=== PATIENT | male | born 1975 | race African-American/Black ===

== ENCOUNTER 2020-06-09 08:29 | Inpatient (IN) | payer OTHER ==
--- NOTE | 2020-06-09 09:21 | BHS.RME ---
Substance Use & Tx History - Substance Use History Heroin Substance amount: 5-6 bags Frequency of use: Daily Substance route: Inhalation (ex: sniffing or snorting) Date of Last Use: 06/08/20 Cocaine- Powder Substance amount: $20-30 Frequency of use: Once a month Substance route: Inhalation (ex: sniffing or snorting) Date of Last Use: 06/02/20 - Last Treatment Date of last treatment: none Physical/Psych/Mental Status - Behavior General Behavior: Increased activity (restlessness, agitation) Eye Contact: Normal - Cooperativeness Cooperativeness: Cooperative - Thinking Thought Processes: Tight, Logical, Goal Directed Thought content: Future oriented - Physical Health Problems Is patient presently having any pain?: No Does patient presently have any injuries (include location): No Does patient currently have a fever: No Is patient : No COWS - Scale Resting Pulse: 0= [place] 80 or Below Sweatin= Chills/Flushing Restless Observation: 1= Difficult to Sit Still Pupil Size: 1= Pupils >than Normal Bone or Joint Aches: 2= Severe Diffuse Aches Runny Nose/ Eye Tearin= Runny Nose/Eyes GI Upset > 30mins: 1= Stomach Cramp Tremor Observation: 2= Slight Tremor Visible Yawning Observation: 2= >3x During Session Anxiety or Irritability: 2=Irritable/Anxious Goose Flesh Skin: 3=Piloerection COWS Score: 17
[2020-06-09 09:46] VITALS: BMI 21.1
--- NOTE | 2020-06-09 10:13 | HP ---
COWS - Scale Resting Pulse: 0= [place] 80 or Below Sweatin= Chills/Flushing Restless Observation: 1= Difficult to Sit Still Pupil Size: 1= Pupils >than Normal Bone or Joint Aches: 2= Severe Diffuse Aches Runny Nose/ Eye Tearin= Runny Nose/Eyes GI Upset > 30mins: 1= Stomach Cramp Tremor Observation: 2= Slight Tremor Visible Yawning Observation: 2= >3x During Session Anxiety or Irritability: 2=Irritable/Anxious Goose Flesh Skin: 3=Piloerection COWS Score: 17 CIWA Score - Admission Criteria OASAS Guidelines: Admission for Medically Managed Detox: Requires at least one of the followin. CIWA greater than 12 2. Seizures within the past 24 hours 3. Delirium tremens within the past 24 hours 4. Hallucinations within the past 24 hours 5. Acute intervention needed for co occurring medical disorder 6. Acute intervention needed for co occurring psychiatric disorder 7. Severe withdrawal that cannot be handled at a lower level of care (continued vomiting, continued diarrhea, abnormal vital signs) requiring intravenous medication and/or fluids 8. Admitting History and Physical - Admission Chief Complaint: Mr. Medina is a 45 yo man who presents to [facility] stating "I need to get clean. Everything is going down hill". History of Present Illness: Mr. Medina is a 45 yo man who presents to [facility] stating "I need to get clean. Everything is going down hill". This is his first detox admission and first [facility] visit. PMH: HIV (Biktarvy and Prescovix), HTN PSH; none Psych: none SOC: livws in an [facility] in [place] Legal: none Substance Use History Heroin Substance amount: 5-6 bags Frequency of use: Daily Substance route: Inhalation (ex: sniffing or snorting) Date of Last Use: 06/08/20 Began at the age of 44 y No OD. No Narcan at home Cocaine- Powder Substance amount: $20-30 Frequency of use: Once a month Substance route: Inhalation (ex: sniffing or snorting) Date of Last Use: 06/02/20 Began at the age of 44 y Nicotine: 3 cigs/day, began age 20 y - Last Treatment Date of last treatment: none History Source: Patient Limitations to Obtaining History: No Limitations - Smoking History Smoking history: Current every day smoker Have you smoked in the past 12 months: Yes Aproximately how many cigarettes per day: 2 Admission ROS BHS - HPI Allergies/Adverse Reactions: Allergies Allergy/AdvReac Type Severity Reaction Status Date / Time No Known Allergies Allergy Verified 06/09/20 09:40 Exam Limitations: No Limitations - Ebola screening Have you traveled outside of the country in the last 21 days: No Have you been sick,other than usual withdrawal symptoms: No Do you have a fever: No - Review of Systems Constitutional: Unintentional Wgt. Loss (20 lb loss in 2 mos) EENT: reports: No Symptoms Reported Respiratory: reports: No Symptoms reported Cardiac: reports: No Symptoms Reported GI: reports: Nausea : reports: No Symptoms Reported Musculoskeletal: reports: Back Pain Integumentary: reports: Dryness Neuro: reports: No Symptoms reported Endocrine: reports: No Symptoms Reported Hematology: reports: No Symptoms Reported Psychiatric: reports: Anxious Patient History - Patient Medical History Hx Asthma: No Hx Chronic Obstructive Pulmonary Disease (COPD): No Hx Cardiac Disorders: No Hx Hypertension: Yes Hx Seizures: No Hx Diabetes: No Hx Gastrointestinal Disorders: No Hx Genitourinary Disorders: No Hx Sexually Transmitted Disorders: Yes Hx Renal Disease (ESRD): No Hx Depression: No Hx Suicide Attempt: No Hx Schizophrenia: No - Patient Surgical History Past Surgical History: No Hx Neurologic Surgery: No Hx Cataract Extraction: No Hx Cardiac Surgery: No Hx Lung Surgery: No Hx Breast Surgery: No Hx Breast Biopsy: No Hx Abdominal Surgery: No Hx Appendectomy: No Hx Cholecystectomy: No Hx Genitourinary Surgery: No Hx Section: No Hx Orthopedic Surgery: No Anesthesia Reaction: No - PPD History Previous Implant?: Yes Documented Results: Negative w/o proof - Smoking Cessation Smoking history: Current every day smoker Have you smoked in the past 12 months: Yes Aproximately how many cigarettes per day: 2 Hx Chewing Tobacco Use: No Initiated information on smoking cessation: No - Substances abused Heroin Substance route: Inhalation Frequency: Daily Amount used: 5-6 BAGS Age of first use: 44 Date of last use: 06/08/20 Cocaine Substance route: Inhalation Frequency: 1-3 times last 30 days Amount used: $20-$30 Age of first use: 44 Date of last use: 06/02/20 Admission Physical Exam BHS - Vital Signs Vital Signs: Vital Signs - 24 hr 06/09/20 09:41 Temperature 97.9 F Pulse Rate 71 Respiratory 18 Rate Blood Pressure 165/108 H - Physical General Appearance: Yes: No Apparent Distress, Nourished, Appropriately Dressed HEENTM: Yes: EOMI, Hearing grossly Normal, Normocephalic, Other (left ptosis, life long) Respiratory: Yes: Lungs Clear, Normal Breath Sounds, No Accessory Muscle Use Neck: Yes: Within Normal Limits, Supple Breast: Yes: Breast Exam Deferred Cardiology: Yes: Regular Rhythm, Regular Rate, S1, S2 Abdominal: Yes: Non Tender, Flat, Soft, Increased Bowel Sounds Genitourinary: Yes: Other (deferred) Back: Yes: Normal Inspection Musculoskeletal: Yes: Gait Steady Extremities: Yes: Normal Inspection, Non-Tender, Other (dry skin bilateral ankles with 5mm elevated area centrally on the right) Neurological: Yes: Alert, Normal Response Integumentary: Yes: Other (above) - Diagnostic (1) Opioid dependence with withdrawal Current Visit: Yes Status: Acute (2) Cocaine dependence Current Visit: Yes Status: Acute (3) Nicotine dependence Current Visit: Yes Status: Acute (4) HTN (hypertension) Current Visit: Yes Status: Chronic (5) HIV (human immunodeficiency virus infection) Current Visit: Yes Status: Chronic Cleared for Admission [facility] - Detox or Rehab [facility] Level of Care: Medically Managed Detox Regimen/Protocol: Methadone Breathalyzer - Breathalyzer Breathalyzer: 0 Urine Drug Screen - Test Device Lot number: [id number] Expiration date: 07/26/21 - Control Is test valid?: Yes - Results Drug screen NEGATIVE: No Urine drug screen results: FEN-Fentanyl, MOP-Opiates Inpatient Rehab Admission - Rehab Decision to Admit Inpatient rehab admission?: No
[2020-06-09] MEDS ORDERED: MAGNESIUM HYDROX 2400MG/30ML ORAL SUSPENSION 30 ML CUP PO PRN (10:18)
[2020-06-09] MEDS ORDERED: METHOCARBAMOL 500 MG TABLET PO PRN (10:18)
[2020-06-09] MEDS ORDERED: ACETAMINOPHEN 325 MG TABLET (FP) PO PRN ×2 (10:18)
[2020-06-09] MEDS ORDERED: METHADONE HCL 10 MG TABLET (FOR DETOX USE ONLY) PO ONE (10:18)
[2020-06-09] MEDS ORDERED: MAG HYDROX/AL HYDROX/SIMETH 30 ML UNIT-DOSE CUP PO PRN (10:18)
[2020-06-09] MEDS ORDERED: MAGNESIUM CITRATE 300 ML BOTTLE PO PRN (10:18)
[2020-06-09] MEDS ORDERED: NICOTINE POLACRILEX 2 MG GUM BUC PRN (10:18)
[2020-06-09] MEDS ORDERED: MENTHOL/PHENOL 1 EACH UD MM PRN (10:18)
[2020-06-09] MEDS ORDERED: ONDANSETRON *ODT* 4 MG TABLET SL PRN (10:18)
[2020-06-09] MEDS ORDERED: BISMUTH SUBSALICYLATE 262 MG/15 ML BTL PO PRN (10:18)
[2020-06-09] MEDS ORDERED: IBUPROFEN 400 MG TABLET (FP) PO PRN (10:18)
[2020-06-09] MEDS ORDERED: PATIENT'S OWN MEDICATION (NON-FORMULARY) (Bictegrav/Emtricit/Tenofov Ala 1 EACH) PO SCH (10:30)
[2020-06-09] MEDS ORDERED: DARUNAVIR 800 MG/COBICISTAT 150MG TABLET PO SCH (10:30)
--- NOTE | 2020-06-09 10:49 | EKG ---
Test Reason : Blood Pressure : / mmHG Vent. Rate : 059 BPM Atrial Rate : 059 BPM P-R Int : 146 ms QRS Dur : 098 ms QT Int : 434 ms P-R-T Axes : 019 043 -03 degrees QTc Int : 429 ms SINUS BRADYCARDIA LEFT ATRIAL ENLARGEMENT VOLTAGE CRITERIA FOR LEFT VENTRICULAR HYPERTROPHY ABNORMAL ECG NO PREVIOUS ECGS AVAILABLE Confirmed by MD TANIA, YAMILA ([id number]) on 06/09/2020 10:48:32 AM Referred By: Confirmed By:YAMILA HER MD
[2020-06-09] MEDS: BICTEGRAV/EMTRICIT/TENOFOV (BIKTARVY) 50-200-25 MG TABLET PO SCH (11:25)
[2020-06-09] MEDS: ASPIRIN 81 MG CHEWABLE TABLETS PO SCH (11:25)
[2020-06-09] MEDS: HYDROCHLOROTHIAZIDE 12.5 MG CAPSULE (FP) PO SCH (11:25)
[2020-06-09] MEDS: DARUNAVIR 800 MG/COBICISTAT 150MG TABLET PO SCH (11:31)
[2020-06-09] MEDS: cloNIDine HCL 0.1 MG TABLET PO PRN ×2 (13:26→22:15)
[2020-06-09] MEDS: hydrOXYzine PAMOATE 25 MG CAPSULE (FP) PO SCH ×3 (13:27→22:15)
[2020-06-09 16:33] LABS: HEMATOCRIT 39.9 % (35.4-49); MCH 28.5 pg (25.7-33.7); MCHC 32.5 g/dl (32.0-35.9); MEAN CELL VOLUME 87.6 fl (80-96); MEAN PLT VOLUME 10.3 fl (7.5-11.1); PLATELET COUNT 219 K/MM3 (134-434); RBC 4.55 M/mm3 (4.00-5.60); RDW 13.5 % (11.9-15.9); WHITE BLOOD COUNT 5.1 K/mm3 (4.0-10.0)
[2020-06-09 16:34] LABS: ALBUMIN 3.2 g/dl (3.4-5.0); BILIRUBIN,TOTAL 0.7 mg/dL (0.2-1); BLOOD UREA NITROGEN 16.7 mg/dL (7-18); CALCIUM 9.2 mg/dL (8.5-10.1); CREATININE 1.1 mg/dL (0.55-1.3); POTASSIUM 3.4 mmol/L (3.5-5.1); TOT PROT 8.1 g/dl (6.4-8.2)
[2020-06-09] MEDS: THIAMINE HCL 100 MG TABLET (FP) PO SCH (22:15)
[2020-06-09] MEDS: MELATONIN 5 MG TABLETS PO SCH (22:16)
[2020-06-10] MEDS: hydrOXYzine PAMOATE 25 MG CAPSULE (FP) PO SCH ×2 (06:01→10:45)
[2020-06-10] MEDS: BICTEGRAV/EMTRICIT/TENOFOV (BIKTARVY) 50-200-25 MG TABLET PO SCH (07:39)
[2020-06-10] MEDS: DARUNAVIR 800 MG/COBICISTAT 150MG TABLET PO SCH (07:40)
[2020-06-10] MEDS ORDERED: METHADONE HCL 5 MG TABLET (FOR DETOX USE ONLY) ONE (09:08)
[2020-06-10] MEDS ORDERED: METHADONE HCL 10 MG TABLET (FOR DETOX USE ONLY) ONE (09:08)
[2020-06-10] MEDS ORDERED: METHADONE (DETOX) 20 MG, METHADONE (DETOX) 5 MG PO ONE (10:00)
[2020-06-10] MEDS: HYDROCHLOROTHIAZIDE 12.5 MG CAPSULE (FP) PO SCH (10:44)
[2020-06-10] MEDS: PRENATAL VITAMINS W/ FOLIC ACID TABLET (FP) PO SCH (10:44)
[2020-06-10] MEDS: NICOTINE 7 MG/24 HOURS TOPICAL PATCH TD SCH (10:44)
[2020-06-10] MEDS: ASPIRIN 81 MG CHEWABLE TABLETS PO SCH (10:44)
[2020-06-10] MEDS ORDERED: PENICILLIN G BENZATHINE 2,400,000 UNIT/4 ML PFS IM ONE (11:22)
--- NOTE | 2020-06-10 11:35 | PN ---
S COWS - Scale Resting Pulse: 0= [place] 80 or Below Sweatin= No chills or Flushing Restless Observation: 0= Sits Still Pupil Size: 1= Pupils >than Normal Bone or Joint Aches: 2= Severe Diffuse Aches Runny Nose/ Eye Tearin= Nasal Congestion GI Upset > 30mins: 2= Nausea/Diarrhea Tremor Observation of Outstretched Hands: 2= Slight Tremor Visible Yawning Observation: 1= 1-2x During Session Anxiety or Irritability: 2=Irritable/Anxious Goose Flesh Skin: 0=Smooth Skin COWS Score: 11 S Progress Note (SOAP) Subjective: alert,irritable,anxious,interrupted sleep,pain in the body and back,feel weak Objective: 06/10/20 11:38 Vital Signs Temperature 98.2 F 06/10/20 08:39 Pulse Rate 67 06/10/20 08:39 Respiratory Rate 18 06/10/20 08:39 Blood Pressure 118/74 06/10/20 08:39 O2 Sat by Pulse Oximetry (%) 96 06/10/20 05:24 Laboratory Last Values WBC 5.1 K/mm3 (4.0-10.0) 06/09/20 10:00 RBC 4.55 M/mm3 (4.00-5.60) 06/09/20 10:00 Hgb 13.0 GM/dL (11.7-16.9) 06/09/20 10:00 Hct 39.9 % (35.4-49) 06/09/20 10:00 MCV 87.6 fl (80-96) 06/09/20 10:00 MCH 28.5 pg (25.7-33.7) 06/09/20 10:00 MCHC 32.5 g/dl (32.0-35.9) 06/09/20 10:00 RDW 13.5 % (11.9-15.9) 06/09/20 10:00 Plt Count 219 K/MM3 (134-434) 06/09/20 10:00 MPV 10.3 fl (7.5-11.1) 06/09/20 10:00 Sodium 140 mmol/L (136-145) 06/09/20 10:00 Potassium 3.4 mmol/L (3.5-5.1) L 06/09/20 10:00 Chloride 105 mmol/L (98-107) 06/09/20 10:00 Carbon Dioxide 25 mmol/L (21-32) 06/09/20 10:00 Anion Gap 10 MMOL/L (8-16) 06/09/20 10:00 BUN 16.7 mg/dL (7-18) 06/09/20 10:00 Creatinine 1.1 mg/dL (0.55-1.3) 06/09/20 10:00 Est GFR (CKD-EPI)AfAm 92.81 06/09/20 10:00 Est GFR (CKD-EPI)NonAf 80.08 06/09/20 10:00 Random Glucose 104 mg/dL (74-106) 06/09/20 10:00 Calcium 9.2 mg/dL (8.5-10.1) 06/09/20 10:00 Total Bilirubin 0.7 mg/dL (0.2-1) 06/09/20 10:00 AST 48 U/L (15-37) H 06/09/20 10:00 ALT 48 U/L (13-61) 06/09/20 10:00 Alkaline Phosphatase 357 U/L (45-117) H 06/09/20 10:00 Total Protein 8.1 g/dl (6.4-8.2) 06/09/20 10:00 Albumin 3.2 g/dl (3.4-5.0) L 06/09/20 10:00 Syphilis Serology Reactive (NONREACTIVE) A* 06/09/20 10:00 RPR Titer Reactive 1:32 (NONREACTIVE) H 06/09/20 10:00 COVID-19 ([facility]) Not detected (Not Detected) 06/09/20 12:00 patient was treated for syphilis by his pmd with 3 injections last month will give bicillin 2.4 million units im today and follow up with PMD Assessment: 06/10/20 11:41 withdrawal symptom Plan: continue detox methadone regimen,ensure plus ,k replacement
[2020-06-10] MEDS ORDERED: hydrOXYzine PAMOATE 25 MG CAPSULE (FP) PO PRN (13:32)
[2020-06-10] MEDS: cloNIDine HCL 0.1 MG TABLET PO PRN (21:55)
[2020-06-10] MEDS: THIAMINE HCL 100 MG TABLET (FP) PO SCH (21:55)
[2020-06-10] MEDS: MELATONIN 5 MG TABLETS PO SCH (23:17)
[2020-06-11] MEDS: BICTEGRAV/EMTRICIT/TENOFOV (BIKTARVY) 50-200-25 MG TABLET PO SCH (07:57)
[2020-06-11] MEDS: DARUNAVIR 800 MG/COBICISTAT 150MG TABLET PO SCH (07:58)
[2020-06-11 09:16] VITALS: BP 139/93; PULSE 84; TEMP 97.3
[2020-06-11] MEDS: HYDROCHLOROTHIAZIDE 12.5 MG CAPSULE (FP) PO SCH (09:43)
[2020-06-11] MEDS: ASPIRIN 81 MG CHEWABLE TABLETS PO SCH (09:43)
[2020-06-11] MEDS: PRENATAL VITAMINS W/ FOLIC ACID TABLET (FP) PO SCH (09:45)
[2020-06-11] MEDS: NICOTINE 7 MG/24 HOURS TOPICAL PATCH TD SCH (09:45)
[2020-06-11] MEDS ORDERED: METHADONE HCL 10 MG TABLET (FOR DETOX USE ONLY) PO ONE (10:00)
--- NOTE | 2020-06-11 10:18 | PN ---
BHS COWS - Scale Resting Pulse: 1= [place] 81-100 Sweatin= No chills or Flushing Restless Observation: 0= Sits Still Pupil Size: 0= Normal to Room Light Bone or Joint Aches: 2= Severe Diffuse Aches Runny Nose/ Eye Tearin= Nasal Congestion GI Upset > 30mins: 1= Stomach Cramp Tremor Observation of Outstretched Hands: 2= Slight Tremor Visible Yawning Observation: 1= 1-2x During Session Anxiety or Irritability: 2=Irritable/Anxious Goose Flesh Skin: 0=Smooth Skin COWS Score: 10 S Progress Note (SOAP) Subjective: alert,irritable,anxious,interrupted sleep,tremor,pain in the body and back,nausea Objective: 06/11/20 10:16 Vital Signs Temperature 97.3 F L 06/11/20 08:36 Pulse Rate 84 06/11/20 08:36 Respiratory Rate 17 06/11/20 08:36 Blood Pressure 139/93 06/11/20 08:36 O2 Sat by Pulse Oximetry (%) 97 06/11/20 05:22 Laboratory Last Values WBC 5.1 K/mm3 (4.0-10.0) 06/09/20 10:00 RBC 4.55 M/mm3 (4.00-5.60) 06/09/20 10:00 Hgb 13.0 GM/dL (11.7-16.9) 06/09/20 10:00 Hct 39.9 % (35.4-49) 06/09/20 10:00 MCV 87.6 fl (80-96) 06/09/20 10:00 MCH 28.5 pg (25.7-33.7) 06/09/20 10:00 MCHC 32.5 g/dl (32.0-35.9) 06/09/20 10:00 RDW 13.5 % (11.9-15.9) 06/09/20 10:00 Plt Count 219 K/MM3 (134-434) 06/09/20 10:00 MPV 10.3 fl (7.5-11.1) 06/09/20 10:00 Sodium 140 mmol/L (136-145) 06/09/20 10:00 Potassium 3.4 mmol/L (3.5-5.1) L 06/09/20 10:00 Chloride 105 mmol/L (98-107) 06/09/20 10:00 Carbon Dioxide 25 mmol/L (21-32) 06/09/20 10:00 Anion Gap 10 MMOL/L (8-16) 06/09/20 10:00 BUN 16.7 mg/dL (7-18) 06/09/20 10:00 Creatinine 1.1 mg/dL (0.55-1.3) 06/09/20 10:00 Est GFR (CKD-EPI)AfAm 92.81 06/09/20 10:00 Est GFR (CKD-EPI)NonAf 80.08 06/09/20 10:00 Random Glucose 104 mg/dL (74-106) 06/09/20 10:00 Calcium 9.2 mg/dL (8.5-10.1) 06/09/20 10:00 Total Bilirubin 0.7 mg/dL (0.2-1) 06/09/20 10:00 AST 48 U/L (15-37) H 06/09/20 10:00 ALT 48 U/L (13-61) 06/09/20 10:00 Alkaline Phosphatase 346 U/L (45-117) H 06/11/20 07:20 Total Protein 8.1 g/dl (6.4-8.2) 06/09/20 10:00 Albumin 3.2 g/dl (3.4-5.0) L 06/09/20 10:00 Syphilis Serology Reactive (NONREACTIVE) A* 06/09/20 10:00 RPR Titer Reactive 1:32 (NONREACTIVE) H 06/09/20 10:00 COVID-19 ([facility]) Not detected (Not Detected) 06/09/20 12:00 Assessment: 06/11/20 10:17 withdrawal symptom Plan: continue detox methadone regimen
--- NOTE | 2020-06-11 10:19 | DS ---
[facility] Detox Discharge Summary Admission Date: 06/09/20 Discharge Date: 06/11/20 - History Present History: Cocaine Dependence, Opioid Dependence Additional Comments: patient did not want to complete treatment,due to personal issue,high risks of relapsing explained,understood, patient signed release ama,seen by counselor, advise to call 911 if not feeling well, patient will see his medical provider for follow up medical problem and follow up with positive rpr titer 1 to 32,receive bicillin la 2.4 million units im on 06/10/2020, was told he has 3 injections from his PMD last month left the unit in stable condition Pertinent Past History: hiv nicotine dependence history of syphilis hypertension weight loss - Physical Exam Results Vital Signs: Vital Signs Temperature 97.3 F L 06/11/20 08:36 Pulse Rate 84 06/11/20 08:36 Respiratory Rate 17 06/11/20 08:36 Blood Pressure 139/93 06/11/20 08:36 O2 Sat by Pulse Oximetry (%) 97 06/11/20 05:22 Pertinent Admission Physical Exam Findings: withdrawal signs and symptom Laboratory Last Values WBC 5.1 K/mm3 (4.0-10.0) 06/09/20 10:00 RBC 4.55 M/mm3 (4.00-5.60) 06/09/20 10:00 Hgb 13.0 GM/dL (11.7-16.9) 06/09/20 10:00 Hct 39.9 % (35.4-49) 06/09/20 10:00 MCV 87.6 fl (80-96) 06/09/20 10:00 MCH 28.5 pg (25.7-33.7) 06/09/20 10:00 MCHC 32.5 g/dl (32.0-35.9) 06/09/20 10:00 RDW 13.5 % (11.9-15.9) 06/09/20 10:00 Plt Count 219 K/MM3 (134-434) 06/09/20 10:00 MPV 10.3 fl (7.5-11.1) 06/09/20 10:00 Sodium 140 mmol/L (136-145) 06/09/20 10:00 Potassium 3.4 mmol/L (3.5-5.1) L 06/09/20 10:00 Chloride 105 mmol/L (98-107) 06/09/20 10:00 Carbon Dioxide 25 mmol/L (21-32) 06/09/20 10:00 Anion Gap 10 MMOL/L (8-16) 06/09/20 10:00 BUN 16.7 mg/dL (7-18) 06/09/20 10:00 Creatinine 1.1 mg/dL (0.55-1.3) 06/09/20 10:00 Est GFR (CKD-EPI)AfAm 92.81 06/09/20 10:00 Est GFR (CKD-EPI)NonAf 80.08 06/09/20 10:00 Random Glucose 104 mg/dL (74-106) 06/09/20 10:00 Calcium 9.2 mg/dL (8.5-10.1) 06/09/20 10:00 Total Bilirubin 0.7 mg/dL (0.2-1) 06/09/20 10:00 AST 48 U/L (15-37) H 06/09/20 10:00 ALT 48 U/L (13-61) 06/09/20 10:00 Alkaline Phosphatase 346 U/L (45-117) H 06/11/20 07:20 Total Protein 8.1 g/dl (6.4-8.2) 06/09/20 10:00 Albumin 3.2 g/dl (3.4-5.0) L 06/09/20 10:00 Syphilis Serology Reactive (NONREACTIVE) A* 06/09/20 10:00 RPR Titer Reactive 1:32 (NONREACTIVE) H 06/09/20 10:00 COVID-19 ([facility]) Not detected (Not Detected) 06/09/20 12:00 Vital Signs Temperature 97.3 F L 06/11/20 08:36 Pulse Rate 84 06/11/20 08:36 Respiratory Rate 17 06/11/20 08:36 Blood Pressure 139/93 06/11/20 08:36 O2 Sat by Pulse Oximetry (%) 97 06/11/20 05:22 - Medication Discharge Medications: Ambulatory Orders Bictegrav/Emtricit/Tenofov Ala [Biktarvy 50-200-25 mg Tablet] 1 each PO DAILY 06/09/20 Darunavir/Cobicistat [Prezcobix 800 mg-150 mg Tablet] 1 each PO DAILY 06/09/20 Fluconazole 100 mg PO DAILY 06/09/20 Hydrochlorothiazide [Hctz -] 12.5 mg PO DAILY 06/09/20 - Diagnosis (1) Cocaine dependence Current Visit: Yes Status: Acute (2) Nicotine dependence Current Visit: Yes Status: Acute (3) Opioid dependence with withdrawal Current Visit: Yes Status: Acute (4) HIV (human immunodeficiency virus infection) Current Visit: Yes Status: Chronic (5) HTN (hypertension) Current Visit: Yes Status: Chronic (6) Weight loss Current Visit: Yes Status: Acute (7) History of syphilis Current Visit: Yes Status: Acute - AMA Did Patient Leave Against Medical Advice: Yes
[2020-06-12] MEDS ORDERED: METHADONE (DETOX) 10 MG, METHADONE (DETOX) 5 MG PO ONE (10:00)
[2020-06-13] MEDS ORDERED: METHADONE HCL 10 MG TABLET (FOR DETOX USE ONLY) PO ONE (10:00)
[2020-06-14] MEDS ORDERED: METHADONE HCL 5 MG TABLET (FOR DETOX USE ONLY) PO ONE (06:00)
== END 2020-06-11 09:48 | disposition left against medical advice (07) | DRG 770 ==
LOC: YASAS 08:29 → Y6N 10:16
PROVIDERS: ADMIT Allergy & Immunology; ATTEND Allergy & Immunology
PROC: HZ2ZZZZ Detoxification Services for Substance Abuse Treatment (ICD-10-PCS; principal; 2020-06-09)
DX: F11.23 Opioid dependence with withdrawal (principal); F14.20 Cocaine dependence, uncomplicated; F17.210 Nicotine dependence, cigarettes, uncomplicated; Z21 Asymptomatic human immunodeficiency virus [HIV] infection status; I10 Essential (primary) hypertension; L85.3 Xerosis cutis; R86 Abnormal findings in specimens from male genital organs; Z68.21 Body mass index [BMI] 21.0-21.9, adult; Z20.2 Contact with and (suspected) exposure to infections with a predominantly sexual mode of transmission; Z86.19 Personal history of other infectious and parasitic diseases
CPT/HCPCS: 36415; 80053; 84075; 85027; 86593; 86780; 93005; 93010; J0735; U0003